=== PATIENT | female | born 1970 | race Caucasian/White ===

== ENCOUNTER 2025-10-18 17:19 | Emergency (ER) | payer BC, SELFPAY ==
[2025-10-18 17:28] VITALS: BP 157/89; PULSE 68; RESP 18; TEMP 36.6; O2SAT 99; BMI 18.6
--- OUTSIDE RECORDS SUMMARY | 2025-10-18 18:25 | XMS_ITS | Clinical Summary ---
Author Organization [email or web address] Address [facility] [place] [address] Care Team Providers Care Elevator Operator Freight Name Role Phone Odalys Pinto MD Primary Care Provider [phone] Allergies No known active allergies Medications MedicationSigDispense QuantityRefillsLast FilledStart DateEnd DateStatus ALPRAZolam (XANAX) 0.25 mg tablet Indications:Panic disorderTAKE 1 TABLET DAILY NEEDED FOR SEVERE PANIC ATTACK 20 Tablet 2Active cholecalciferol (Vitamin D) 1,000 unit capsule Take 1 Capsule (1,000 units) by mouth once daily.2Active atenoloL (TENORMIN) 25 mg tablet Indications:Atrial tachycardia, paroxysmal (HC)Take 2 Tablets (50 mg) by mouth once daily. TAKE 2 TABLETS DAILY (ZYDUS) 200 Tablet 5Active Active Problems ProblemNoted DateDiagnosed DateParoxysmal SVT (supraventricular tachycardia) 3Pap smear for cervical cancer bdwmdkreh73/14/2022 Overview (09/13/2022): 07/2022: NIL/HPV neg. Plan: Pap and HPV in 5 years. Hot flashes due to umckugkkb31/27/2018Migraine without aura and responsive to vshljifxp06/27/2018Irritable bowel syndrome with iuivlpti49/17/2015Other specified cardiac vcqvfyqabbq78/11/2015Other cxkersoczei81/29/2015GAD (generalized anxiety disorder)05/03/2012Non-Hodgkin's /17/2011 Encounters DateTypeDepartmentCare RuybUbmcqiucjyg72/05/2025 9:00 AM CSTOrders Only [facility] [address] [place] [address] Lab, Appv <No scans attached>09/04/20257380Axnbtr94/01/5571Xkqbbe34/21/2025 1:45 PM CDTOffice Visit [facility] [address] [place] [address] Hett, Odalys Escobar MD Physical (--Not Fasting)08/20/20257407Lbrixm06/17/2025Travelfrom Last 3 Months Immunizations ImmunizationAdministration DatesNext DueCOVID-19 VACCINE SPIKEVAX (MODERNA 50MCG/0.5ML) 12YO+ PFS5COVID-19 vaccine (Pfizer-BioNTech 30mcg/0.3mL) 12YO+ BIVALENT PF, MDV12COVID-19 vaccine (Pfizer-BioNTech 30mcg/0.3mL) 12YO+ ANGEL-SUCROSE PF, MDV12/21/2021INFLUENZA, IIV3 PF (AGE >= 6 MO)08/20/2025 Influenza RIV4 (Age 18+ Years) PRESERV FREE08/08/2023,08/27/2020Influenza Virus, Brhahjohhsg76/01/2013Influenza, CCIIV3 (Age >=6 MO) (Egg Free)06/30/2024 Influenza, IIV3 (Age >=3 years)11/21/2012,12/13/2006Influenza, NTK242/, 07/29/2021,09/03/2019,08/18/2018,09/07/2017,09/07/2016,11/03/2015,10/01/2014 Influenza, IIV4 (Age 6-35 Mos)08/18/2018Influenza, Intradermal Inactivated 08/07/2013Pneumococcal Conj 20-valent (Prevnar 20)2Pneumococcal Poly,23-Valent (Pneumovax)03/31/2011Tdap1,02/09/2011Zoster (Shingrix- RZV, recombinant)01/18/2023,11/16/2022 Family History Medical HistoryRelationNameCommentsThroat cancerMaternal GrandfatherStroke Maternal GrandmotherCoronary artery diseaseMotherHeart attackMother HyperlipidemiaMotherHypertensionMotherHypothyroidismMotherSupraventricular tachycardiaSister1/2 sisterCancer-breastNo Family HistoryCancer-ovarianNo Family HistoryRelationNameStatusCommentsFatherunknownMaternal GrandfatherDeceased Maternal GrandmotherDeceasedMotherAliveSister1/2 sisterAlive Social History Tobacco UseTypesPacks/DayYears UsedDateSmoking Tobacco: Every DayCigarettes0.532 Started: 1993Smokeless Tobacco: Never Tobacco Cessation:Ready to Q uit: Not Asked; Counseling Given: Not Answered Comments:0.5 ppd for 31 years ( 2024) Alcohol UseStandard Drinks/WeekCommentsYes0 (1 standard drink = 0.6 oz pure alcohol)2 glasses of wine/weekPHQ-2AnswerDate RecordedPHQ-2 TOTAL SCORE0 08/08/2024Social ConnectionsAnswerDate RecordedDo you often feel lonely or isolated from those around you?lcohol UseAnswerDate RecordedHow often do you have a drink containing alcohol?How many drinks containing alcohol do you have on a typical day when you are drinking?0 08/20/2025How often do you have five or more drinks on one occasion? Financial Resource StrainAnswerDate RecordedDifficulty of Paying Living Expenses Difficulty of Paying Living ExpensesNot on file08/16/2025Food InsecurityAnswerDate RecordedDo you worry your food will run out before you are able to buy more?Transportation NeedsAnswerDate RecordedDoes lack of transportation keep you from medical appointments?Does lack of transportation keep you from work, meetings or getting things that you need?1 08/16/2025Housing StabilityAnswerDate RecordedWhat is your housing situation today?UtilitiesAnswerDate RecordedDo you have trouble paying for utilities (for example, heat, electricity, water, phone)? CommentsNoSex and Gender InformationValueDate RecordedSex Assigned at BirthNot on fileLegal WtrRlyvjp78/14/2013 6:24 AM CSTGender IdentityNot on fileSexual OrientationNot on file Last Filed Vital Signs Vital SignReadingTime TakenCommentsBlood Wbingwjx469/7408/20/2025 2:45 PM CDT Akdtg161408/20/2025 2:05 PM JABUdyrfvnofaw27.8 ??C (98.2 ??F)03/12/2024 8:51 AM CDTRespiratory Ouyd575903/12/2024 8:51 AM CDTOxygen Senknwgqvz41%08/20/2025 2:05 PM CDTInhaled Oxygen Concentration--Elutup72.3 kg (106 lb 8 oz)08/20/2025 2:05 PM MHPAdoswp241.8 cm (5' 2.52)08/20/2025 2:05 PM CDTBody Mass Index19.16 08/20/2025 2:05 PM CDT Plan of Treatment Health MaintenanceDue DateLast DoneCommentsHIV for age 15-Hepatitis C screening for age 18-Hepatitis B series for 19+ (1 of 3 - 19+ 3- dose series)02/14/1987RSV vaccine for adults or (1 - Risk 50-74 years 1-dose series)02/14/2018Mammogram for age 45-5005/30/2024, 10/01/2022, 08/15/2019, Additional history existsDepression screening for age 12+08/10/2025 08/10/2024, 08/08/2024, 08/17/2023, Additional history existsCOVID-19 vaccine series (9 - Pfizer risk 2024- season)61, 06/30/2024, 08/08/2023, Additional history existsBMI (ht and wt on same day) for age 18+ , 08/10/2024, 08/17/2023, Additional history existsPap test for age 21-6571, 08/03/2022, 10/17/2017 (Verified in Care Everywhere or Patient Record)Colonoscopy through age 750, 11/09/2019 (Verified in Care Everywhere or Patient Record)Lipids for age 45-75 , 08/10/2024, 08/17/2023, Additional history existsTetanus fbulhnb33, 02/09/2011Pneumococcal series for age 50+Completed 08/17/2022, 03/31/2011Zoster (shingles) series for age 50+Eqdplpqbc33/21/2023, 11/16/2022Influenza LzrilbiEeoxnmdfq43/21/2025, 06/30/2024, 08/08/2023, Additional history exists Procedures Procedure NamePriorityDate/TimeAssociated DiagnosisCommentsCOMP METABOLIC PANEL Nfzulmt0609/04/2025 8:47 AM [employer] Routine general medical examination at a health care facility LIPID PANEL W REFLEX MEASURED YSSObsxktd83/05/2025 8:47 AM [employer] Routine general medical examination at a health care facility SCAN-YBLMQKZQVSE03/06/2025 8:30 AM [facility] [employer] XR MAMMO HIMANSHU BILAT GPQZLDRxnddct04/31/2024 9:28 AM CDT Visit for screening mammogram HPV HIGH IPTTShzuxlq48/04/2022 9:56 AM CDT Cervical cancer screening from Last 3 Months or Most Recently Relevant to Health Maintenance Results * (ABNORMAL) LIPID PANEL W REFLEX MEASURED LDL (09/04/2025 8:47 AM [employer])Component ValueRef RangeTest MethodAnalysis TimePerformed AtPathologist Signature CHOLESTEROL, GPJBY542(H)<200 mg/dL09/05/2025 2:55 AM [facility] BDRTWMPCHILNZ44<150 mg/dL09/05/2025 2:55 AM CSTQUEST DIAGNOSTICSHDL RXWIHCTECPM12> OR = 50 mg/dL09/05/2025 2:55 AM CSTQUEST DIAGNOSTICSNON HDL XUPEJPTMTCV022(H)<130 mg/dL (calc)09/05/2025 2:55 AM [facility] Comment: For patients with diabetes plus 1 major ASCVD risk factor, treating to a non-HDL-C goal of <100 mg/dL (LDL-C of <70 mg/dL) is considered a therapeutic option. CHOL/HDLC RATIO3.2<5.0 (calc)09/05/2025 2:55 AM [facility] LDL-VPJGIIYIQIJ117(H)mg/dL (calc)09/05/2025 2:55 AM CSTQUEST DIAGNOSTICSComment: Reference range: <100 Desirable range <100 mg/dL for primary prevention; <70 mg/dL for patients with CHD or diabetic patients with > or = 2 CHD risk factors. LDL-C is now calculated using the Earle calculation, which is a validated novel method providing better accuracy than the Friedewald equation in the estimation of LDL-C. Pedro Luis SS et al. DAVID. 2013;310(19): 5268-7807 (http://education.Zonder/faq/GZI380) Specimen (Source)Anatomical Location / LateralityCollection Method / Volume Collection TimeReceived TimeBloodBLOOD SPECIMEN / UnknownQuest Collect / Unknown 09/04/2025 8:47 AM CST09/04/2025 8:47 AM [employer] Narrative Authorizing ProviderResult TypeResult StatusHolly Luz Hett MDCHEMISTRYFinal ResultPerforming OrganizationAddressCity/State/ZIP CodePhone Number [facility] [address] [address], * (ABNORMAL) COMP METABOLIC PANEL (09/04/2025 8:47 AM [employer])ComponentValueRef RangeTest MethodAnalysis TimePerformed AtPathologist ImjqijqziSSWWTU598832 - 146 mmol/L111/05/2024 2:55 AM CSTQUEST DIAGNOSTICSPOTASSIUM4.93.5 - 5.3 mmol/L 09/05/2025 2:55 AM CSTQUEST YKIBIPTPWRLSMKQMUGP11310 - 110 mmol/L111/05/2024 2:55 AM CSTQUEST DIAGNOSTICSCARBON PNDKUVF9510 - 32 mmol/L111/05/2024 2:55 AM CSTQUEST YBTXHFMUXMMBSOMTOK9845 - 99 mg/dL09/05/2025 2:55 AM CSTQUEST DIAGNOSTICSComment: ? Fasting reference interval CALCIUM9.48.6 - 10.4 mg/dL09/05/2025 2:55 AM CSTQUEST DIAGNOSTICSCREATININE0.80 0.50 - 1.03 mg/dL09/05/2025 2:55 AM CSTQUEST DIAGNOSTICSBUN/CREATININE RATIOSEE NOTE:6 - 22 (calc)09/05/2025 2:55 AM CSTQUEST DIAGNOSTICSComment: ?? Not Reported: BUN and Creatinine are within ?? reference range. ? EGFR86> OR = 60 mL/min/1.90f49509/05/2025 2:55 AM CSTQUEST DIAGNOSTICSALBUMIN4.6 3.6 - 5.1 g/dL09/05/2025 2:55 AM CSTQUEST DIAGNOSTICSPROTEIN, TOTAL6.36.1 - 8.1 g/dL09/05/2025 2:55 AM CSTQUEST DIAGNOSTICSBILIRUBIN, TOTAL0.50.2 - 1.2 mg/dL 09/05/2025 2:55 AM CSTQUEST DIAGNOSTICSALKALINE TNAWZTSTZHE7299 - 153 U/L 09/05/2025 2:55 AM CSTQUEST SURKRUFQUYDSTB925 - 29 U/L111/05/2024 2:55 AM [employer] [facility] OHHQFDPTJZLWOD1332 - 35 U/L111/05/2024 2:55 AM CSTQUEST DIAGNOSTICSUREA NITROGEN (BUN)137 - 25 mg/dL09/05/2025 2:55 AM CSTQUEST DIAGNOSTICSGLOBULIN1.7 (L)1.9 - 3.7 g/dL (calc)09/05/2025 2:55 AM CSTQUEST DIAGNOSTICSALBUMIN/GLOBULIN RATIO2.7(H)1.0 - 2.5 (calc)09/05/2025 2:55 AM CSTQUEST DIAGNOSTICSSpecimen (Source)Anatomical Location / LateralityCollection Method / VolumeCollection TimeReceived TimeBloodBLOOD SPECIMEN / UnknownQuest Collect / Galziok7909/04/2025 8:47 AM CST09/04/2025 8:47 AM [employer] Narrative Authorizing ProviderResult TypeResult StatusHolly Luz Pinto [facility] OKLAHOMA CITYHEMISTRYFinal ResultPerforming OrganizationAddressCity/State/ZIP CodePhone Number [facility] [address] [place] [address], * SCAN-COLONOSCOPY (11/05/2024 8:30 AM [employer]PARTMENT) Narrative Procedure Note Chester Lerma MD - 11/05/2024 7:41 AM CST [facility] [place] [address] [facility], [address], [place] [id number] Patient Name: Aleta Miranda Gender: Female Exam Date: 11/05/2024 Visit Number: [id number] Age: 54 Years Date of : 1970 Attending MD: Chester Lerma MD Medical Record#: [id number] Procedure: Colonoscopy Indications: Previous adenomatous polyp(s) Referring MD: Referral Self Primary MD: Odalys Pinto MD Medications: Admitting Medications: 0.9% Normal Saline at TKO Intra Procedure Medications: Patient received monitored anesthesia care. Complications: No immediate complications Procedure: An examination of the heart and lungs was performed and found to be within acceptable limits. . The patient was therefore deemed a reasonablecandidate for endoscopy and sedation. The risks and benefits of the procedure were explained to the patient.After obtaining informed consent, the patient received monitoredanesthesia care and I passed the scope without difficulty via the rectum to the ascending colon. The scope was retroflexed during the examination The quality of the prep was excellent (Miralax/Gatorade/2 tablets Bisacodyl/Magnesium Citrate). This procedure was incomplete due to Findings: Polyp location: sigmoid. Quantity: 1. Size: 10 mm. Polyp shape:sessile. Maneuver: polypectomy was performed with a cold snare. Removal: complete. Retrieval: complete. Bleeding: none. Hemorrhoids. Remainder of the exam is normal. Comments: Retroflexion in the right colon was performed. Impression: Encounter for screening for malignant neoplasm of colon Preliminary Plan: The patient and their physician will receive a copy of the pathologyreport as well as pathology-based recommendations for future screening orsurveillance. Comments: if path shows adenoma, repeat in 3 years. Otherwise, repeat in10 years. Pathology Results: A: COLON, SIGMOID, POLYP: 1. Hyperplastic polyp MICROSCOPIC A: Performed SPECIAL STAINING/DEEPER A: Deeper Electronically signed by: Jose A Matamoros MD Interpreted at [facility], [address] [place] [phone] Orders Instruction(s)/Education: Instruction/Education Timeframe Assessment Colon Cancer Prevention Z12.11 Colon Polyps Z12.11 Hemorrhoids (Internal) Z12.11 Final Plan: Repeat colonoscopy in 5 years for Polyp surveillance. We will attempt to contact you at appropriate intervals via U.S. mail. Wemay not be able to find you or contact you at that time, therefore youshould know that the responsibility for following our recommendation restswith you. If you don't hear from us at the time your procedure is due,please contact our office to schedule an appointment. If your contactinformation should change, please contact our office so that we can updateyour record. Additional Comments: [place] - typically we don't bring people back early for ahyperplastic polyp, however if they are over 1 cm in size then we dorecommend an earlier follow up. Recommend 5 year surveillance. _Electronically signed by: Chester Lerma MD 11/05/2024 cc: Odalys Pinto MD Authorizing ProviderResult TypeResult StatusChester Lerma MDOTHERFinal Result * XR MAMMO HIMANSHU BILAT SCREEN (05/30/2024 9:28 AM CDT)Anatomical RegionLaterality ModalityBREASTS, Breast Left, Breast RightBilateralMammographySpecimen (Source)Anatomical Location / LateralityCollection Method / VolumeCollection TimeReceived Time Impressions 05/31/2024 11:45 AM CDT There is no radiographic evidence for malignancy. Recommend annual mammograms. MAMMOGRAM ASSESSMENT: ??ACR 1 Negative PATIENTS: You will also receive a letter with your examination results in an easy to read format. ??If you have questions about your results, please contact your referring provider. Narrative 05/31/2024 11:45 AM CDT For Patients: As a result of the Century Cures Act, medical imaging exams and procedure reports are released immediately into your electronic medical record. You may view this report before your referring provider. If you have questions, please contact your health care provider. XR MAMMO HIMANSHU BILAT SCREEN [[id number]] CLINICAL HISTORY: ??This is an asymptomatic 54 y.o. patient. INDICATION FOR EXAM: Mammogram Screening. TECHNIQUE: CC & MLO views were obtained. This study was evaluated with the assistance of Computer-Aided Detection. Breast Tomosynthesis was used in interpretation. COMPARISON FILM: Yes 10/01/22 [facility] 08[facility]15[facility]19 [facility] FINDINGS: ??The breasts are extremely dense, which lowers the sensitivity of mammography. There are no dominant masses, suspicious micro calcifications or areas of architectural distortion. Authorizing ProviderResult TypeResult StatusHolly Luz Hett MDMAMMOFinal Result * HPV HIGH RISK (08/03/2022 9:56 AM CDT)ComponentValueRef RangeTest Method Analysis TimePerformed AtPathologist SignatureTYPE 16NegativeNegative 08/06/2022 11:11 AM [facility]-CENTRAL LABORATORYTYPE 18 GwmgfleeVtmhhtlx85/07/2022 11:[address] [facility] LABORATORYOTHER HIGH RISK JPYRNZeocksrdZoenxmaq33/07/2022 11:[address] [facility]TRAL LABORATORYSpecimen (Source)Anatomical Location / LateralityCollection Method / VolumeCollection TimeReceived TimeOther (Cervical)Non-Blood / Llcoacb8808/03/2022 9:56 AM CDT1 11:15 AM CDT Narrative [facility]ENTRAL LABORATORY - 08/06/2022 11:11 AM CDT HPV types 16, 18, 31, 33, 35, 39, 45, 51, 52, 56, 58, 59, 66 and 68 DNA were undetectable or below the pre-set threshold. Methodology: Erna Vania 4800 HPV Test Authorizing ProviderResult TypeResult StatusHolly Luz Pinto MDMICROBIOLOGYFinal ResultPerforming OrganizationAddressCity/State/ZIP CodePhone Number [facility] [address] [place] [address], from Last 3 Months or Most Recently Relevant to Health Maintenance Insurance Care Teams Team MemberRelationshipSpecialtyStart [place] [address] [place] [address] PCP - GeneralFamily Practice07/28/21
--- OUTSIDE RECORDS SUMMARY | 2025-10-18 18:25 | XMS_ITS | Clinical Summary ---
Author Organization [facility] Address [address] [place] [address] Care Team Providers Care Lift Builder Whole Name Role Phone Unavailable Primary Care Provider Unavailabl e Source Comments Patient records contain information from all sites at [facility]. For routine questions regarding patient records, call [phone] during business hours, M-F 8:00 AM - 5:00 PM Central Time. Record requests for emergency care only can be directed to [phone] at any time.[facility] Allergies No known active allergies Medications MedicationSigDispense QuantityRefillsLast FilledStart DateEnd DateStatus atenolol (TENORMIN) 25 mg tablet Take 1-2 tablets by mouth daily.11/17/2010ctive cholecalciferol (VITAMIN D3) 50 mcg (2,000 Unit) capsule Take 1 capsule by mouth daily.03/11/2014ctive ALPRAZolam (XANAX) 0.5 mg tablet Take 0.5 tablets by mouth daily as needed. PRN12/13/2016Active L.acidoph-B.lactis-B.longum (FLORAJEN 3) 15 billion cell per capsule Take 1 capsule by mouth daily.Active Active Problems ProblemNoted DateDiagnosed DateHot Flash06/26/2018Migraine Without Aura Not Intractable Without Status Eankcjheana88/27/2018Tachycardia Atrial Paroxysmal 11/16/2010Lymphoma Non Hodgkins Multiple Site11/16/2010 Immunizations ImmunizationAdministration DatesNext DueInfluenza Split07/31/2013PPSV23 03/31/2011Tdap02/09/2011influenza vaccine QV(FLUBLOK) (18 years or older) (PF) 08/27/2020influenza vaccine quad (FLUZONE/FLUARIX) (6 months and older)(PF) 07/29/2021,09/03/2019,09/07/2017,09/07/2016 Social History Tobacco UseTypesPacks/DayYears UsedDateSmoking Tobacco: Every DayCigarettes Smokeless Tobacco: Never Tobacco Cessation:Ready to Q uit: Not Asked; Counseling Given: Not Answered Alcohol UseStandard Drinks/WeekCommentsYes2 (1 standard drink = 0.6 oz pure alcohol)[facility] UtilitiesAnswerDate RecordedIn the past 12 months has the electric, gas, oil, or water company threatened to shut off services in your home?No 03/29/2024Humiliation, Afraid, Rape, and Kick questionnaireAnswerDate Recorded Within the last year, have you been afraid of your partner or ex-partner?No 02/18/2023Within the last year, have you been humiliated or emotionally abused in other ways by your partner or ex-partner?No02/18/2023Within the last year, have you been kicked, hit, slapped, or otherwise physically hurt by your partner or ex-partner?No02/18/2023Within the last year, have you been raped or forced to have any kind of sexual activity by your partner or ex-partner?No02/18/2023 Hunger Vital SignAnswerDate RecordedWithin the past 12 months, you worried that your food would run out before you got the money to buymore.Never true03/29/2024 Within the past 12 months, the food you bought just didn't last and you didn't have money to get more.Never true03/29/2024RAPARE - TransportationAnswerDate RecordedIn the past 12 months, has lack of transportation kept you from medical appointments or from getting medications?No03/29/2024In the past 12 months, has lack of transportation kept you from meetings, work, or from getting things needed for daily living?No03/29/2024Housing StabilityAnswerDate RecordedWhat is your living situation today?I have a steady place to live03/29/2024Education AnswerDate RecordedWhat is the highest level of school you have completed or the highest degree you have received?Some college, no mknwbx5212/03/2019 CommentsUnknownSex and Gender InformationValueDate RecordedSex Assigned at Kssqzk4102/26/2022 10:17 AM CDTLegal KvnYqotcj20/02/2017 8:50 PM CSTGender DkvfwqbvOiwpic74/23/2018 12:33 PM CDTSexual ChowsmfmjueBvvltumb66/23/2018 12:33 PM CDT Last Filed Vital Signs Vital SignReadingTime TakenCommentsBlood Gdjtndwy794/7506 4:07 PM CDT Tdlec291804/02/2025 4:07 PM DGABvkrluwtswp31.2 ??C (98.9 ??F)04/02/2025 4:07 PM CDTRespiratory Yuaa562103/11/2014 6:41 PM CDTOxygen Xurhcmzxkl60%04/02/2025 4:07 PM CDTInhaled Oxygen Concentration--Xayymp14.7 kg (109 lb 9.1 oz)04/02/2025 4:07 PM DXZQuekhy832.4 cm (5' 3.94)04/02/2025 4:07 PM CDTBody Mass Index18.84 04/02/2025 4:07 PM CDT Plan of Treatment Health MaintenanceDue DateLast DoneCommentsCT Yzlrhkoryfvv1970Cologuard 1970FIT1970HIV Wytgskihd1970Hepatitis C Rklhsuymk1970 Tobacco Cessation /17/1970Hepatitis B Vaccines (1 of 3 - 19+ 3-dose series)02/14/1987Cervical/Vaginal Cancer Nzjltjhya83 (Performed elsewhere), 03/31/2011 (Performed elsewhere)Depression Screening (Annual PHQ-2)10/31/20242452Kivriyszs53/31/13140605/30/2024, 05/30/2024, 10/01/2022, Additional history existsCOVID-19 Vaccine ( season)2025 06/30/2024, 08/08/2023, 08/03/2022, Additional history existsInfluenza Vaccine (#1)508/, 08/08/2023, 08/17/2022, Additional history exists Fasting Glucose for Diabetes Bjoymgtca03, 08/17/2023, 08/03/2022, Additional history existsLipid (Cholesterol) Zdkulxnfk65/18/2028 08/17/2023, 08/03/2022, 07/29/2021, Additional history existsDTaP,Tdap,and Td Vaccines (3 - Td or Tdap), 02/09/20115818Ksvdqpgpkcb29/06/2035 11/05/2024olorectal Cancer Vkfpenawn52/06/2035Pneumococcal vaccine (50+ years) Snprpunro95/18/2022, 03/31/2011Zoster EyjqruutEvzjeiroz69/21/2023, 11/16/2022HPV VaccinesAged OutNo longer eligible based on patient's age to complete this topic IPV VaccinesAged OutNo longer eligible based on patient's age to complete this topic Procedures Procedure NamePriorityDate/TimeAssociated DiagnosisCommentsGLUCOSE, FASTING, S/P Pyqrnhn8006/26/2018 8:41 AM CDT Migraine Without Aura Not Intractable Without Status Migrainosus Lymphoma Non Hodgkins Multiple Site (HCC) Tachycardia Supraventricular (HCC) from Last 3 Months or Most Recently Relevant to Health Maintenance Results * Glucose, Fasting (06/26/2018 8:41 AM CDT)ComponentValueRef RangeTest Method Analysis TimePerformed AtPathologist SignatureGlucose, P9270 - 100 mg/dL 06/26/2018 9:44 AM [facility]Last Wvrmfv63py34/27/2018 9:02 AM [facility]ERSpecimen (Source)Anatomical Location / LateralityCollection Method / VolumeCollection TimeReceived VnlnEwczf49/27/2018 8:41 AM CDT06/26/2018 9:02 AM CDT Narrative Authorizing ProviderResult TypeResult StatusThomas M Habermann M.D.LAB BLOOD NON ADD-ONFinal ResultPerforming OrganizationAddressCity/State/ZIP CodePhone Number [facility] [address] [place], [place] [phone] [place] [address] from Last 3 Months or Most Recently Relevant to Health Maintenance Insurance
--- OUTSIDE RECORDS SUMMARY | 2025-10-18 18:25 | XMS_ITS | Clinical Summary ---
Author Organization [facility] Address [address] [place] [id number] Care Team Providers Care Data Entry Representative Name Role Phone [facility], [facility] Primary Care Provide r Oren Marquez MD Unavailable [phone] Allergies No known active allergies Social History Tobacco UseTypesPacks/DayYears UsedDateSmoking Tobacco: Never Assessed CommentsUnknownSex and Gender InformationValueDate RecordedSex Assigned at Not on fileLegal QrxBanbse61/04/2012 4:13 AM CSTGender IdentityNot on fileSexual OrientationNot on file Last Filed Vital Signs Vital SignReadingTime TakenCommentsBlood Spbdhhey693/7409 7:45 AM CDT Rwbvw070907/09/2020 7:45 AM AAVIfjhwryelra81.6 ??C (97.9 ??F)07/09/2020 6:53 AM CDTRespiratory Vvdt664507/09/2020 6:53 AM CDTOxygen Wfrusrvokd08%07/09/2020 7:45 AM CDTInhaled Oxygen Concentration--Lsfowg59.9 kg (110 lb)07/09/2020 6:53 AM CDT Hkmaoi288 cm (5' 3)07/09/2020 6:53 AM CDTBody Mass Index19.4909 6:53 AM CDT Plan of Treatment DateTypeDepartmentCare Team (Latest Contact Info)Txurzdgmsdr30/15/2026 10:15 AM CSTOffice Visit [facility] [address] [place] [phone] Oren Marquez MD [address] [place] [address] Health MaintenanceDue DateLast DoneCommentsADVANCE CARE UIBGLJEC1968ANNUAL REVIEW OF HM VNAXEU7602/15/1968CT PZLSFPCFMZAT98/17/5561BDQ1002/15/1968FLEX SIG 1968sDNA (Cologuard)1968YEARLY PREVENTIVE VISIT02/14/1971COLONOSCOPY 02/14/1978COLORECTAL CANCER POCQOORUG42/17/1978HIV IDEABFQBT29/17/1983HEPATITIS C GODMYUMBV92/17/1986HEPATITIS B VACCINE (1 of 3 - 19+ 3-dose series)02/14/1987 PAP02/14/1989MAMMO IIUSPTOXU67DIABETES WYUJFSIKZ43/09/2023 07/09/2020, 09/03/20194933ORGGA27/04/50513211/03/2018PHQ-2 (once per calendar year) 2024DTAP/TDAP/TD VACCINE (3 - Td or Tdap)21, 02/09/2011 PNEUMOCOCCAL VACCINE 50+ YJHVOEfrgfvebd93/18/2022, 03/31/2011ZOSTER VACCINE Zhlignktk47/21/2023, 3COVID-19 PUNGHUWFlyxseciw40/21/2025, 06/30/2024, 08/08/2023, Additional history existsINFLUENZA BOSVJIQSnaatbrsk28/21/2025, 06/30/2024, 08/08/2023, Additional history existsHPV VACCINE (No Doses Required) CompletedMENINGITIS VACCINEAged OutNo longer eligible based on patient's age to complete this topic Procedures Procedure NamePriorityDate/TimeAssociated DiagnosisCommentsBASIC METABOLIC PANEL STAT07/09/2020 7:36 AM CDT Palpitations LIPID QOQETCMNcozheo51/04/2019 from Last 3 Months or Most Recently Relevant to Health Maintenance Results * Basic metabolic panel (07/09/2020 7:36 AM CDT)ComponentValueRef RangeTest MethodAnalysis TimePerformed AtPathologist HidrqnosoEjcija166418 - 144 mmol/L 07/09/2020 8:[address] [facility]assium3.83.4 - 5.3 mmol/L 07/09/2020 8:[address] [facility]ENTERChloride10794 - 109 mmol/L 07/09/2020 8:[address] [facility]ENTERCarbon Mmfmwyu1509 - 32 mmol/L 07/09/2020 8:[address] [facility]ENTERAnion Gap43 - 14 mmol/L 07/09/2020 8:[address] [facility]ENTERGlucose9470 - 99 mg/dL07/09/2020 8:[address] [facility]ENTERUrea Yldjdfjj540 - 30 mg/dL07/09/2020 8:[address] [facility]ENTERCreatinine0.860.52 - 1.04 mg/dL07/09/2020 8:[address] [facility]ENTERGFR Nrpkkwlq99>60 mL/min/{1.73_m2}07/09/2020 8:[address] [facility]ENTERComment: Non GFR Calc Starting 10/17/2018, serum creatinine based estimated GFR (eGFR) will be calculated using the Chronic Kidney Disease Epidemiology Collaboration (CKD-EPI) equation. GFR Estimate If Black89>60 mL/min/{1.73_m2}07/09/2020 8:[address] [facility]Comment: GFR Calc Starting 10/17/2018, serum creatinine based estimated GFR (eGFR) will be calculated using the Chronic Kidney Disease Epidemiology Collaboration (CKD-EPI) equation. Calcium9.28.5 - 10.1 mg/dL07/09/2020 8:06 AM [facility] SYSTEMpecimen (Source)Anatomical Location / LateralityCollection Method / VolumeCollection TimeReceived TimeBlood specimen (specimen)07/09/2020 7:36 AM CDT07/09/2020 7:47 AM CDT Narrative Authorizing ProviderResult TypeResult StatusScott White MDLAB - BLOOD ORDERABLES Final ResultPerforming OrganizationAddressCity/State/ZIP CodePhone Number [facility] [address] [place] [address], [facility] [phone] * (ABNORMAL) Lipid Profile (09/03/2019)ComponentValueRef RangeTest Method Analysis TimePerformed AtPathologist HrsksznbxAkjjhxwezfv393.0(H)0.0 - 200.0 mg/dLSELECT [facility]ICAL [facility] PRNHXTLJSUSgguaxnurjkyu35.030.0 - 200.0 mg/dL [facility] LABORATORYHDL Hmmxqdjzjdy23.040.0 - 96.0 mg/dL [facility] LABORATORYLDL Cholesterol Wacejcjkrw664.2(H)0.0 - 130.0 mg/dLSELECT MEDICAL [facility] LABORATORYCholesterol/HDL Ratio3.1AWVUMEDICINE HARRISON COMMUNITY [facility]ITAL LABORATORYVLDL - Calc10.85.0 - 40.0 CalcSELECT MEDICAL [facility] LABORATORYSpecimen (Source)Anatomical Location / Laterality Collection Method / VolumeCollection TimeReceived TimeBlood specimen (specimen)09/03/2019 Narrative Authorizing ProviderResult TypeResult StatusPatient ReportedLAB - BLOOD ORDERABLESFinal ResultPerforming OrganizationAddressCity/State/ZIP CodePhone Number [facility] [address] [place] [address], [facility] [phone] from Last 3 Months or Most Recently Relevant to Health Maintenance Insurance * Guarantor: Ruth, Aleta AAccount TypeRelation to PatientDate of BirthPhone Billing AddressPersonal/EkvnntNkbfzr1970 [id number] [id number] [place] [address] Care Teams Team MemberRelationshipSpecialtyStart DateEnd [facility] [address] [address] [facility] [place], [place] [id number] PCP - General07/09/20 Oren Marquez MD [address] [place] [id number] MDCardiovascular Zmnjhpw58/15/25
--- NOTE | 2025-10-18 19:45 | ED.GENADULT ---
HPI - General Adult General Chief complaint: Hypertension Stated complaint: high Bp/ Bp wont come down Time Seen by Provider: 10/18/25 17:28 Source: patient Mode of arrival: ambulatory Limitations: no limitations History of Present Illness HPI narrative: 55-year-old female reports elevated blood pressure intermittently for several weeks but more persistent today. No chest pain, no shortness of breath, no neurological changes. She was evaluated at a walk-in clinic for eye issues, blood pressure noted to be in the 150s at that visit. Patient does check her blood pressure at home as they do have a blood pressure cuff. She shows me readings from home. These vary from 11/05 systolic up to the 150s. Most of the time she is in the 120s. She does admit that she has been very anxious today and she gets more anxious when she checks her blood pressure. Seeing that it was elevated at the doctor's visit, made her anxious as well. She took half of a Xanax and tried to rest but when she woke up wanted to check her blood pressure again, noting that it was still elevated in the 150s. Because of this she presents to the emergency room. She does have a history of significant anxiety, is actually on the atenolol very low-dose twice daily for anxiety. She also has Xanax that she uses as needed as well. She has no history of coronary artery disease or stroke. She has had no recent workups for these as her symptoms did not warrant doing so. No recent injury or trauma. Admits to being anxious about her blood pressure and gets anxious every time she thinks about checking her blood pressure as well. She does have a history of tachycardia in the past. It sounds like she had an episode of atrial tachycardia many years ago but this resolved spontaneously without any treatment. It does not sound like she was cardioverted. It does not sound like she is on ongoing treatment for this or is currently having any breakthrough episodes. She has not been symptomatic to elevated heart rate today. She is not experiencing any fevers, signs of illness, bloody stools, vomiting. She is otherwise feeling well other than the anxiety and elevated blood pressure. Past medical history reviewed, she does not have any prior encounters in our health system. Prescriptions for atenolol and Xanax noted. No known drug allergies. Nonsmoker. ROS is notable for the anxiety and generalized symptoms as above, otherwise acutely denies times 12 systems today. Related Data Home Medications ?Medication ?Instructions ?Recorded ?Confirmed alprazolam .ROUTE PRN 10/18/25 atenolol 25 mg tablet 25 mg PO BID 10/18/25 10/18/25 cholecalciferol (vitamin D3) 50 2,000 unit PO DAILY 10/18/25 10/18/25 mcg (2,000 unit) tablet (D3 DOTS) Allergies Allergy/AdvReac Type Severity Reaction Status Date / Time No Known Drug Allergies Allergy Verified 10/18/25 17:26 PFSH PFS Social History Smoking Status: Never smoker How often do you have a drink containing alcohol: never AUDIT-C Alcohol total score: 0 Non-prescribed substance use: denies use Exam Const: Vital Signs, click to edit/add: Vital Signs - 24 hr 10/18/25 17:28 Temperature 97.8 F Pulse Rate [Pulse Oximeter] 68 Respiratory Rate 18 Blood Pressure [Ri ght Upper Arm] 157/89 H Pulse Oximetry 99 Oxygen Delivery Me thod Room Air Documenting provider has reviewed patient's vital signs: yes Common normals: no apparent distress and alert General appearance: cooperative and well kempt Other: Anxious but redirectable. Good historian. appears well nourished well hydrated HENMT: Common normals: normocephalic, moist oral mucous membranes and oropharynx normal Head and scalp: normocephalic Eye: General eye: normal appearance of both eyes Neck & C-Spine: Common normals: full ROM General: normal visual inspection Resp: Common normals: normal respiratory effort, no use of accessory muscles and clear to auscultation bilaterally Effort & inspection: able to speak in complete sentences Auscultation: clear to auscultation bilaterally Cardio: Common normals: regular rate, regular rhythm, S1 normal heart sound, S2 normal heart sound and no murmurs Rate: regular rate Rhythm: regular rhythm Heart sounds: S1 normal and S2 normal Neuro: Common normals: CN's II-XII intact bilaterally, moves all extremities and no focal motor deficits Sensorium/orientation: alert Speech: speech normal Gait (neuro): normal gait Motor exam: strength 5/5 throughout Psych: Appearance: well kempt Mood and affect: anxious Attention/concentration: attention grossly intact Memory/cognition: memory grossly intact Insight: insight good Judgement: judgment good Course Course ED Course: 55-year-old female with elevated blood pressure reading but without any signs of hypertensive emergency. EKG is performed, showing normal sinus rhythm with no ischemic changes. Patient is somewhat reassured by this. We spent some time reviewing her symptoms, we discussed monitoring for neurological changes, chest pain, other indications that would warrant treatment. I review her blood pressure readings from the jessica on her phone and explain why do not want to treat her blood pressure acutely. These normal blood pressure readings could potentially become hypotension and she may be more symptomatic to that and that could potentially be more dangerous than these isolated elevated blood pressures. We reviewed indications that would warrant ED re-evaluation. She is afraid to check her blood pressure because it gives her anxiety. I have encouraged her to continue desensitization of this process and check her blood pressure multiple times per day so that she gets use to it and has less anxiety about the process. Good technique reviewed to get the best readings. She will keep track of these, follow-up with her primary care provider in 1 month. They will decide together if she should make adjustments to her atenolol or perform further workup. Alarm symptoms were reviewed that would warrant ED re-evaluation and she verbalizes understanding and agreement. Vital Signs Vital signs: Initial Vital Signs Temperature 97.8 F 10/18/25 17:28 Temperature Source Temporal Artery Scan 10/18/25 17:28 Pulse Rate 68 10/18/25 17:28 Pulse Rhythm Regular 10/18/25 17:28 Respiratory Rate 18 10/18/25 17:28 Blood Pressure 157/89 H 10/18/25 17:28 Blood Pressure Mean 111 H 10/18/25 17:28 Blood Pressure Position Sitting 10/18/25 17:28 Pulse Oximetry 99 10/18/25 17:28 Oxygen Delivery Method Room Air 10/18/25 17:28 Vital Signs Temperature 97.8 F 10/18/25 17:28 Pulse Rate 68 10/18/25 17:28 Respiratory Rate 18 10/18/25 17:28 Blood Pressure 157/89 H 10/18/25 17:28 Pulse Oximetry 99 10/18/25 17:28 Oxygen Delivery Method Room Air 10/18/25 17:28 Temperature 97.8 F 10/18/25 17:28 Pulse Rate 68 10/18/25 17:28 Respiratory Rate 18 10/18/25 17:28 Blood Pressure 157/89 H 10/18/25 17:28 Pulse Oximetry 99 10/18/25 17:28 Oxygen Delivery Method Room Air 10/18/25 17:28 Medical Decision Making ECG Data Attestation: I personally reviewed and interpreted this ECG as follows: Prior ECG tracings: not available for review Interpretation: Sinus rhythm with a rate of 67. Normal intervals. Good R-wave progression. The significant ST or T-wave abnormalities. Normal EKG Discharge Plan Discharge Clinical Impression: Elevated blood pressure reading Patient Disposition: Home w/ Parent or Adult Condition: Stable Instructions: How to Take a Blood Pressure Reading (ED) Additional Instructions: as we discussed, it is common for your blood pressure to swing about 50 points. This is typical for most patients. Having your home blood pressure readings is very reassuring to me that we do not need to start medication at this time. It can be frustrating for people that their blood pressure will be higher some days but this is typically due to stress, other illnesses or other things going on with in your body. There are no signs of stroke or heart attack today, therefore I do not recommend that we change your treatment plan. I really do want you taking her blood pressure regularly and following up with your primary care doctor regarding these results. Please come back to the emergency room if you have stroke-like symptoms, severe chest pain, very rapid heart rate. Consider wearing a heart rate monitor such as a fitness watch or other similar device to help you monitor for this. Please record your blood pressures and make a follow-up appointment with her primary care provider in a month to go over these so that you guys can decide together what is the best treatment plan for you. Activity Level: No Restrictions Discharge Diet: Regular Prescriptions: No Action atenolol 25 mg tablet 25 mg PO BID alprazolam [Xanax] .ROUTE PRN Patient Comments: Takes 1/4 to 1/2 tablet, unsure of dosage. cholecalciferol (vitamin D3) [D3 DOTS] 50 mcg (2,000 unit) tablet 2,000 unit PO DAILY Stand Alone Forms: Education Elements Info Instructions
== END 2025-10-18 18:23 | disposition home or self-care (01) ==
LOC: ED 18:23
PROVIDERS: Emergency Provider Family Medicine
DX: R03.0 Elevated blood-pressure reading, without diagnosis of hypertension (principal)
CPT/HCPCS: 93005; 99283